=== PATIENT | female | born 1950 | race Caucasian/White ===

== ENCOUNTER → 2017-05-17 | Outpatient (CLI) | payer OTHER ==
[~2017-05-17] MED LIST: ADVIN25050 INH; ALBU1AER9 INH; ASPCH81 PO; DVN160125 PO; ESCI1TAB10 PO; FLNIN NAE; [UNRECOGNIZED DRUG - OTHER]
--- NOTE | 2017-05-18 05:44 | PAP/PSG TECHNICIAN REPORT ---
[facility] Glue Cook Polysomnogram Report Study name: None Report date: 05/18/2017 Study date: 05/17/2017 Referring Physician: Dr. Rosangela Eason M.D. Name: ROYA THOMAS Interpreting Physician: Florentin Lockett M.D. Date of : 1950 Glue Cook: RHEA Petty. Sex: Female Age: 67 StudyType: PSG PAP Weight: 255 lbs Height: 67 years, Height 5' 4" Neck Circum:17.25in BMI: 43.77 Medications: Dulera 200-5mcg/act, Tessalon Perles 100mg, Deltasone 10mg, Lexapro 20mg, Valsartan- HCTZ 320-12.5mg, Buspar 15mg, ProAir HFA 108mcg/act, Astepro nasal sollution, Flonase 50mcg/act, Fish Oil, Retin -A, Clindamycin, Epipen, Nasal Saline, Multivitamin, Calcium, Align, ASA 81mg Patient History Study started on room air with 10 cwp cpap in room #6. 67 yr old female here tonight for a titration study required in order to qualify for oxygen now that she is on Medicare. Order to start on 10 cwp and titrate oxygen if indicated. ESS=5/24. Neck circ=17.25inches. Parameters Monitored NPSG: E1-M2, E2-M1, Fp1-M2, Fp2-M1, F3-M2, F4-M2, F4-M1, C3-M2, C4-M2, C4-M1, O1-M2, O2-M2, O2-M1, T3-M2, T4-M1, P3-M2, P4-M1, CHIN1, CHIN2, HR, EKG, Legs, PFLOW, SNOR, FLOW, CFLOW, Tidal Volume, THOR, ABDO, SpO2, PLTH, CPRESS, ETCO2 Wave, ETCO2, pH Sleep Architecture Sleep Stages Time at Lights Off 10:39:28 PM STAGES Time (min.) TST (%) Time at Lights On 5:23:28 AM Wake 139.0 -- Total Recording Time (TRT) 404.00 min. N1 13.5 5 Total Sleep Period (TSP) 371.5 min. N2 168.5 64 Total Sleep Time (TST) 265.0min. N3 83.0 31 Awake Time 139.0 min. REM 0.0 0 Wake after Sleep Onset 106.5 min. Sleep Efficiency (SE) 66 % Sleep Onset Latency (JACQUIE) 32.5 min. Number of Stage 1 Shifts None Awakenings 16 Stage Changes 75 Number of REM periods N/A REM 0.0 0 REM Latency NONE min. NREM 265.0 100 Body Position Analysis Supine Right Left Side Prone Vertical Total Sleep Time (min.) 89.4 39.0 172.4 211.40 0.0 20.7 Total Sleep Time (%) 20% 15% 65% 80 0% N/A% Total Sleep Time REM (min.) 0.0 0.0 0.0 None 0.0 0.0 Total Sleep Time NREM (min.) 53.6 39.0 172.4 None 0.0 0.0 Intermittent Wake (min.) 35.8 8.8 73.7 None 0.0 20.7 Total Sleep Period (%) 24% None None None None None Arousals Myoclonus (PLM) * Events Count Index Events Count Index Spontaneous 11 2 Events Awake (PLMW) 211 91.1 Respiratory 6 0.9 Events Asleep w/ Arousal (PLMA) 27 6.1 PLM 26 6 Events Asleep w/o Arousal (PLMS) 170 38.5 Snoring 2 0 Total Asleep 197 44.6 Total 45 10 Total 408 61 Respiratory Analysis * CA OA MA CH H RERA Total Count 0 0 0 0 11 0 11 Index 0.0 0.0 0.0 0 2.5 0 2.5 Mean Duration 0.0 0.0 0.0 0.00 16.9 0.0 16.9 Longest Duration 0.0 0.0 0.0 0.00 0.0 0.0 19.4 Respiratory Event Summary Total Supine ~Supine Right Left Prone REM NREM Apneas Count 0 0 0 0 0 N/A N/A 0 Index 0.0 0 0 0.0 0.0 N/A N/A 0 Hypopneas (4% Desat) Count 11 1 10 6 4 N/A N/A 11 Index 2.5 1.1 3 9.2 1.4 N/A N/A 2.5 Apneas & All Hypopneas Count 11 1 10 6 4 N/A N/A 11 Index 2.5 1 3 9 1 N/A N/A 2.5 Respiratory Events (Compensation Analyst+All Hyp+RERA) Count 11 1 10 6 4 N/A N/A 11 Index 2.5 1 3 9.2 1.4 N/A N/A 2.5 Respiratory Related Arousal Count 6 1 4 3 1 N/A N/A 4 Index 0.9 0 1 5 0 N/A N/A 1 Snoring Analysis Supine Right Left Prone REM NREM Total Snore duration 0.8 min Snores count 4 5 10 N/A N/A 19 19 Snore mean duration 2.5 Sec Snores index 4 8 3 N/A N/A 4.3 4.3 TST with snoring (%) 0.3% Desaturation Event Summary: Minimum %SpO2 Event Count Mean/Min/Max Duration(sec.) Desaturation Index % Time In Bed > 90 83 20.9 / 5.5 / 55.5 42.2 30.1 86 - 90 24 20.0 / 5.5 / 54.8 5.4 67.9 81 - 85 0 N/A 0.0 2.0 76 - 80 0 N/A 0.0 0.0 71 - 75 0 N/A 0.0 0.0 66 - 70 0 N/A 0.0 0.0 61 - 65 0 N/A 0.0 0.0 56 - 60 0 N/A 0.0 0.0 51 - 55 0 N/A 0.0 0.0 < 50 0 N/A 0.0 0.0 Total REM NREM Awake <50% 0.0 min. 0.0 min. 0.0 min. 0.0 min. 51 - 60% 0.0 min. 0.0 min. 0.0 min. 0.0 min. 61 - 70% 0.0 min. 0.0 min. 0.0 min. 0.0 min. 71 - 80% 0.1 min. 0.0 min. 0.0 min. 0.1 min. 81 - 90% 273.7 min. 0.0 min. 235.4 min. 38.3 min. 91 - 100% 118.1 min. 0.0 min. 29.5 min. 88.6 min. Average 90 0 89 92 Minimum SpO2 80 N/A 84 80 Desaturation Event Index 13.2 0.0 4.8 29.4 # Desat. Events below 89% 47 N/A 12 35 Time(%) with Saturation below 89% 20.7 0.0 16.4 4.4 Time(min.) with Saturation below 89% 81.3 0.0 64.2 17.1 Time (mins) REM (mins) NREM (mins) % of TST SpO2 Below 90% 20 N/A N20 55.8 SpO2 Below 88% 5 0 0 10 Heart Rate Analysis Min (bpm) Max (bpm) Average (bpm) Awake 60 127 71 NREM 62 77 69 REM N/A N/A N/A Overall 62 77 69 Supplemental O2 Values Minimum O2 level: None Value Start Time End Time Glue Cook Comments Mrs. Thomas slept in the right, left and supine positions. No cardiac arrhythmia noted. Someleg movements were noted. No bruxism noted. CPAP was initiated at +10 CMH2O and up-titrated to an optimal level of +11 CMH2O, which nearly eliminated all respiratory events and snoring. At 2:10 am her oxygen saturations were under 89% for 31.7 minutes on a setting of 11cwp with an AHIof 2.9 for a total of 126.0 minutes. One liter of oxygen was added at this time. She needed to be uptitrated to 2 liters of oxygen but because of being needed in another patient's room because they were ready to get up; I was unable to add the extra liter. A Angelique nasal cushion system by [employer] was used during titration She awoke to use the restroom 1 time during the night. She stated that she slept a little worse than when at home. She did not feel well and she was losing her voice and had a little cough. The final report will be interpreted and signed by a sleep physician. The completed physician report will then be placed in the patient medical record. Therapy Event: Therapy (cm H20) 10 11 Total Time at Pressure (min.) 66.0 338.0 TST at Pressure (min.) 22.0 243.0 # Periods 1 1 Sleep Onset (min.) 32.5 0.0 REM Onset (min.) N/A N/A Sleep Efficiency % 33 71 Wakefulness (%) 66.7 28.1 Wakefulness (min.) 44.0 95.0 NREM 1 (%) 3.8 3.3 NREM 1 (min.) 2.5 11.0 NREM 2 (%) 29.6 44.1 NREM 2 (min.) 19.5 149.0 NREM 3 (%) 0.0 24.6 NREM 3 (min.) 0.0 83.0 REM (%) 0.0 0.0 REM (min.) 0.0 0.0 # Arousals 10 35 Arousal Index 27.3 8.6 # Snore 0 19 Snore Index 0.0 4.7 AHI 10.9 1.7 AHI Supine N/A 1.1 AHI Non-Supine 10.9 1.9 NREM AHI 10.9 1.7 REM AHI N/A N/A RDI 10.9 1.7 # Obstructive 0 0 # Central Ap 0 0 # Mixed 0 0 # Hypopneas 4 7 RERAS 0 0 Total Respiratory Events 4 7 Time Below SpO2 89.00% (min.) 20.5 43.7 Mean NREM SpO2 (%) 87 89 Mean REM SpO2 (%) N/A N/A Mean Sleep SpO2 (%) 87 89 Min NREM SpO2 (%) 84 84 Min REM SpO2 (%) N/A N/A Position Supine (min.) 0.0 53.6 Position Non-supine (min.) 22.0 189.4 LM Index Sleep 81.9 41.2 LM Index NREM 81.9 41.2 LM Index REM N/A N/A Mean Heart Rate (bpm) 72 68 Min Heart Rate (bpm) 68 62
--- NOTE | 2017-05-19 19:42 | POLYSOMNOGRAPH REPORT ---
CLINICAL DATA: A 67-year-old female with a BMI of 43.8, referred by Dr. Rosanglea Eason, for a CPAP titration study. She needs to have this done to qualify for oxygen since she is on Medicare. Her [place] sleepiness score is 5/24. SLEEP ARCHITECTURE: Total sleep period was 371.5 minutes. Total sleep time was 265 minutes, all non-REM sleep. Sleep onset latency was 32.5 minutes. Sleep efficiency was 66%. Wake after sleep onset was 106.5 minutes. Sleep consisted of stage N1 5%, stage N2 64%, and stage N3 31%. AROUSAL DATA: Forty five arousals were recorded for an index of 10 per hour. PERIODIC LIMB MOVEMENT DATA: Moderately elevated limb movements during sleep were noted. There 197 limb movements during sleep were noted for an index of 44.6 with arousal index of 6.1 per hour. RESPIRATORY DATA: The AHI was 2.5. There were 11 hypopneic episodes with the mean duration 16.9 seconds. OXIMETRY DATA: Nocturnal hypoxemia was seen. Oxygen joana was 84%. Mean saturation was 90%. ECHOCARDIOGRAM: Heart rates ranged from 62-77 beats per minute. No arrhythmias were noted. DIGITAL ASSET MANAGER'S COMMENTS AND TREATMENT SUMMARY: The patient slept in the right, left, and supine positions. CPAP was started at 10 cm of water pressure and titrated up to 11 cm of water pressure. She used her Angelique nasal cushion system by [employer]. She was persistently hypoxemic in spite of control of her sleep apnea with an O2 saturation less than 89% for 31.7 minutes on 11 cm water pressure CPAP with an AHI of 2.9; therefore, 1 liter per minute was added. The patient was going to be titrated up to 2 liters per minute, but oxygen was needed in another patient's room and they were unable to add the extra oxygen. With her CPAP and oxygen at 1 liter per minute, she slept for 243 minutes with an AHI of 1.7 and control her hypoxemia. IMPRESSION: Obstructive sleep apnea corrected with CPAP 11 cm of water pressure, oxygen at 1 liter per minute using the above-noted facemask. RECOMMENDATIONS: The patient should be started on the above noted treatment regimen and seen back in followup within 90 days to document efficacy and compliance. [facility]
== END | disposition home or self-care (01) ==
LOC: C.NEUR 21:00
PROVIDERS: ATTEND Internal Medicine
DX: G47.33 Obstructive sleep apnea (adult) (pediatric) (principal); R09.02 Hypoxemia